=== PATIENT | female | born 1995 | race Two or more races ===

== ENCOUNTER 2024-04-29 12:07 | Emergency (ER) | payer OTHER ==
[~2024-04-29] VITALS: Ht 162.6 cm; Wt 49.9 kg
[2024-04-29] MEDS ORDERED: DEXAMETHASONE SODIUM PHOSPHATE 4 MG/ML VIAL IM STA (15:39)
[2024-04-29] MEDS ORDERED: DEXAMETHASONE SODIUM PHOSPHATE 4 MG/ML VIAL ONE (15:44)
== END 2024-04-29 15:47 | disposition home or self-care (01) ==
LOC: ER 12:10
DX: L30.8 Other specified dermatitis (principal)